=== PATIENT | female | born 1995 | race Two or more races ===

== ENCOUNTER 2018-09-07 14:11 | Emergency (ER) | payer OTHER ==
[~2018-09-07] VITALS: Ht 162.6 cm; Wt 83.0 kg
[2018-09-07 16:16] LABS: BASOPHILS % 0.6 % (0.0-2.0); EOSINOPHILS % 0.9 % (0.0-5.0); HEMOGLOBIN. 13.5 g/dL (12.0-16.0); LYMPHOCYTES % 32.1 % (20.0-50.0); MEAN CORPUSCULAR HEMOGLOBIN 28.6 pg (28.0-32.0); MEAN CORPUSCULAR VOLUME 84.8 fL (81.0-99.0); MEAN PLATELET VOLUME 7.9 fl (7.4-10.4); MONOCYTES % 8.6 % (2.0-8.0); NEUTROPHILS % 57.8 % (40.0-76.0); PLATELET 287 x1000/uL (130-400); RED BLOOD CELL COUNT 4.72 mill/uL (4.2-5.4); RED CELL DISTRIBUTION WIDTH 13.4 % (11.6-14.6)
[2018-09-07 16:20] LABS: CHLORIDE 104 mEq/L (98-107)
[2018-09-07 16:45] LABS: B-HCG QUANTITATIVE 64714 mIU/mL (<3)
[2018-09-07 17:55] LABS: CLARITY URINE CLEAR (CLEAR); COLOR URINE YELLOW (YELLOW); KETONES URINE 2+ (NEGATIVE); LEUKOCYTE ESTERASE URINE TRACE (NEGATIVE); NITRITE URINE NEGATIVE (NEGATIVE); OCCULT BLOOD URINE NEGATIVE (NEGATIVE); PROTEIN URINE NEGATIVE (NEGATIVE); SPECIFIC GRAVITY URINE 1.015 (1.005-1.030); UROBILINOGEN URINE 0.2 E.U./dL (0.2-1.0)
[2018-09-07 18:44] VITALS: BP 117/74
== END 2018-09-07 18:54 | disposition home or self-care (01) ==
LOC: ER 14:11
DX: O03.9 Complete or unspecified spontaneous abortion without complication (principal); O23.41 Unspecified infection of urinary tract in pregnancy, first trimester; Z3A.01 Less than 8 weeks gestation of pregnancy; Z98.890 Other specified postprocedural states; Z88.0 Allergy status to penicillin
CPT/HCPCS: 36415; 76801; 80053; 81003; 81025; 84702; 85025; 86850; 86900; 86901; 99285; Z7610

== ENCOUNTER 2019-01-13 14:16 | Observation (INO) | payer OTHER ==
[~2019-01-13] VITALS: Ht 162.6 cm; Wt 84.8 kg
[2019-01-13] MEDS ORDERED: PREN1TAB78 PO (14:49)
== END 2019-01-13 16:15 | disposition home or self-care (01) ==
LOC: 8 EST LDRP 14:16
PROVIDERS: ADMIT Obstetrics & Gynecology; ATTEND Obstetrics & Gynecology
DX: O26.892 Other specified pregnancy related conditions, second trimester (principal); R10.9 Unspecified abdominal pain; Z3A.25 25 weeks gestation of pregnancy
CPT/HCPCS: 99281; G0378

== ENCOUNTER 2019-12-05 17:23 | Emergency (ER) | payer OTHER ==
[~2019-12-05] VITALS: Ht 162.6 cm; Wt 74.0 kg
[~2019-12-05 17:23] MED LIST: PREN1TAB78 PO
[2019-12-05] MEDS ORDERED: ACETAMINOPHEN 325MG TABLET PO ONE (21:15)
[2019-12-05 21:35] VITALS: BP 119/74
== END 2019-12-05 21:35 | disposition home or self-care (01) ==
LOC: ER 17:23
DX: N61.0 Mastitis without abscess (principal); Z88.0 Allergy status to penicillin; Z98.890 Other specified postprocedural states
CPT/HCPCS: 99283